=== PATIENT | female | born 1950 | race Caucasian/White ===

== ENCOUNTER 2017-06-15 15:03 | Emergency (ER) | payer MEDICARE, BC ==
--- NOTE | 2017-06-16 08:40 | US ---
Left lower extremity deep venous ultrasound: Duplex and color flow imaging was obtained of the left common femoral, proximal greater saphenous, superficial femoral, popliteal, posterior tibial and peroneal veins. Right common femoral vein was also evaluated. Findings: Superficial varicosity is identified within the medial and proximal left calf showing intraluminal thrombus compatible with superficial thrombophlebitis.. Deep veins show normal phasic flow, augmentation and compression. Impression: 1. Superficial varicosity within the medial and proximal calf compatible with superficial thrombophlebitis. 2. No evidence of deep venous thrombosis is seen within the left lower extremity or within the right common femoral vein. Diagnostic code #3
--- NOTE | 2017-06-24 22:18 | EDM.PDOC ---
ED HPI GENERAL MEDICAL PROBLEM - General Chief Complaint: Cardiovascular Problem Stated Complaint: LEFT LEG AND KNEE PAIN Time Seen by Provider: 06/15/17 17:30 Source of Information: Reports: Patient - History of Present Illness INITIAL COMMENTS - FREE TEXT/NARRATIVE: 67 year old female with L leg pain, swelling that started a few days ago, no known injury, hx of varicose veins. No chest pain or trouble breathing. Review of Systems - Review of Systems Review Of Systems: See Below Constitutional: Denies: Chills, Fever Eyes: Reports: No Symptoms Mouth/Throat: Reports: No Symptoms Respiratory: Denies: Shortness of Breath, Pleuritic Chest Pain Cardiovascular: Denies: Chest Pain GI/Abdominal: Denies: Abdominal Pain, Nausea, Vomiting Musculoskeletal: Reports: Leg Pain Skin: Reports: Erythema Neurological: Denies: Numbness, Tingling ED EXAM, GENERAL - Physical Exam Exam: See Below General Appearance: Alert, No Apparent Distress Eye Exam: Bilateral Eye: PERRL Throat/Mouth: Normal Inspection Head: Atraumatic Neck: Supple, Full Range of Motion Respiratory/Chest: No Respiratory Distress, Lungs Clear, Normal Breath Sounds Cardiovascular: Regular Rate, Rhythm Extremities: Leg Pain, Redness (L upper leg with some localized swelling and tenderness) Course - Re-Assessments/Exams Free Text/Narrative Re-Assessment/Exam: 06/24/17 22:17 US of leg neg for DVT Departure - Departure Time of Disposition: 18:00 Disposition: Home, Self-Care 01 Condition: Fair Clinical Impression: Superficial phlebitis - Discharge Information Referrals: Fátima Presley MD [Primary Care Provider] - Forms: ED Department Discharge
== END 2017-06-15 21:39 | disposition home or self-care (01) ==
LOC: JD.ED 15:03
DX: I80.02 Phlebitis and thrombophlebitis of superficial vessels of left lower extremity (principal)
CPT/HCPCS: 93971-26-LT; 93971-LT; 99284-25

== ENCOUNTER 2021-05-02 10:37 | Day surgery (SDC) | payer MEDICARE, BC ==
[~2021-05-02 10:37] MED LIST: Cefuroxime 10 MG/ML SYRINGE EYERT SCH; Lidocaine 1% PF 2 ML SDV INJECT SCH; Pilocarpine 4% Ophth Soln 15 ML Bot EYERT SCH
[2021-05-02] MEDS: Polymyxin B/Trimethoprim 10 ML Bottle EYERT SCH ×3 (10:43→12:29)
[2021-05-02] MEDS: Brimonidine 0.2% Ophth Soln 5 ML Bottle EYERT SCH ×3 (10:48→12:29)
[2021-05-02] MEDS: Phenylephrine 2.5% Ophth Soln 2 ML Bot EYERT SCH ×5 (10:54→12:08)
[2021-05-02] MEDS: Tropicamide 1% Ophth Soln 15 ML Bottle EYERT SCH ×4 (10:59→11:45)
[2021-05-02] MEDS: Tetracaine HCl/PF 0.5% 4 ML Bottle EYEBOTH SCH ×2 (12:00→12:19)
== END 2021-05-02 12:38 | disposition home or self-care (01) ==
LOC: JD.SDS 10:37
PROVIDERS: ATTEND Ophthalmology
DX: H25.813 Combined forms of age-related cataract, bilateral (principal); H16.223 Keratoconjunctivitis sicca, not specified as Sjogren's, bilateral; H02.831 Dermatochalasis of right upper eyelid; H02.834 Dermatochalasis of left upper eyelid; I10 Essential (primary) hypertension; F41.9 Anxiety disorder, unspecified; F32.A Depression, unspecified; E78.00 Pure hypercholesterolemia, unspecified; Z98.890 Other specified postprocedural states; Z79.899 Other long term (current) drug therapy
CPT/HCPCS: 66984; C1780; J0697

== ENCOUNTER 2021-05-30 09:13 | Day surgery (SDC) | payer MEDICARE, BC ==
[2021-05-30] MEDS: Polymyxin B/Trimethoprim 10 ML Bottle EYELF SCH ×4 (09:26→12:48)
[2021-05-30] MEDS: Brimonidine 0.2% Ophth Soln 5 ML Bottle EYELF SCH ×4 (09:29→12:48)
[2021-05-30] MEDS: Phenylephrine 2.5% Ophth Soln 2 ML Bot EYELF SCH ×6 (09:33→12:47)
[2021-05-30] MEDS: Tropicamide 1% Ophth Soln 15 ML Bottle EYELF SCH ×4 (09:37→10:06)
[2021-05-30] MEDS: Tetracaine HCl/PF 0.5% 4 ML Bottle EYEBOTH SCH ×5 (10:09→12:47)
[2021-05-30] MEDS: Lidocaine 1% PF 2 ML SDV INJECT SCH ×2 (10:38→12:48)
[2021-05-30] MEDS: Cefuroxime 10 MG/ML SYRINGE EYELF SCH ×2 (10:47→12:48)
[2021-05-30] MEDS: Pilocarpine 4% Ophth Soln 15 ML Bot EYELF SCH ×2 (10:48→12:48)
== END 2021-05-30 10:56 | disposition home or self-care (01) ==
LOC: JD.SDS 09:13
PROVIDERS: ATTEND Ophthalmology
DX: H25.812 Combined forms of age-related cataract, left eye (principal); H02.834 Dermatochalasis of left upper eyelid; H16.103 Unspecified superficial keratitis, bilateral; H02.831 Dermatochalasis of right upper eyelid; H16.223 Keratoconjunctivitis sicca, not specified as Sjogren's, bilateral; I10 Essential (primary) hypertension; H54.7 Unspecified visual loss; E78.00 Pure hypercholesterolemia, unspecified; M19.90 Unspecified osteoarthritis, unspecified site; K21.9 Gastro-esophageal reflux disease without esophagitis; F41.9 Anxiety disorder, unspecified; F32.A Depression, unspecified; Z96.1 Presence of intraocular lens; Z98.890 Other specified postprocedural states
CPT/HCPCS: 66984; J0697; C1780

== ENCOUNTER 2023-01-19 13:03 | Emergency (ER) | payer MEDICARE, BC | END 2023-01-19 15:47 | disposition home or self-care (01) | LOC: JD.ED 13:03 | DX: S22.080A Wedge compression fracture of T11-T12 vertebra, initial encounter for closed fracture (principal); S00.83XA Contusion of other part of head, initial encounter; I10 Essential (primary) hypertension; E78.00 Pure hypercholesterolemia, unspecified; K21.9 Gastro-esophageal reflux disease without esophagitis; Z79.899 Other long term (current) drug therapy; W18.30XA Fall on same level, unspecified, initial encounter | CPT/HCPCS: 70450; 70450-26; 72125; 72125-26; 72128; 72128-26; 72131; 72131-26; 99283; 99284 ==